=== PATIENT | male | born 1985 | race African-American/Black ===

== ENCOUNTER 2022-11-28 15:03 | Outpatient (REF) | payer OTHER, SELFPAY ==
--- NOTE | ~2022-11-28 | XR_ITS ---
EXAMINATION: XR HIP, RIGHT CLINICAL INFORMATION: Right hip pain COMPARISON: None TECHNIQUE: Two views of the right hip. FINDINGS: Mild narrowing of the right femoral acetabular joint with tiny osteophytosis at the superior aspect of the acetabulum. No acute fracture or dislocation. Mild degenerative changes of the right sacroiliac joint. 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
[2022-11-28 15:24] LABS: MANUAL DIFF FLAG NO
[2022-11-28 15:51] LABS: Basophils Absolute Auto 0.1 X10*3/uL (0.0-0.2); Basophils Percent Auto 0.9 % (0-2); Eosinophils Absolute Auto 0.3 X10*3/uL (0.0-0.4); Eosinophils Percent Auto 3.6 % (0-4); Hematocrit 43.1 % (42.0-52.0); Hemoglobin 14.1 g/dl (14.0-18.0); Imm Gran Abs Auto 0.02 X10*3/uL (0.00-0.03); Imm Gran Pct Auto 0.3 % (0.0-0.4); Lymphocytes Absolute Auto 2.4 X10*3/uL (1.2-4.9); Mean Corpuscular HGB Conc 32.7 g/dl (31.0-36.0); Mean Corpuscular Hemoglobin 28.5 pg (27.0-33.0); Mean Corpuscular Volume 87.1 fL (80.0-98.0); Mean Platelet Volume 9.3 fL (9.4-12.4); Monocytes Absolute Auto 0.6 X10*3/uL (0.1-1.2); Monocytes Percent Auto 7.7 % (2-11); Neutrophils Absolute Auto 4.4 x10*3/uL (2.0-8.3); Neutrophils Percent Auto 56.5 % (45-73); Platelet Count 237 X10*3/uL (160-400); Red Blood Count 4.95 X10*6/uL (4.60-5.80); Red Cell Distribution Width 13.2 % (11.0-16.0); White Blood Count 7.8 X10*3/uL (4.8-10.8)
[2022-11-28 16:20] LABS: Alanine Aminotransferase 24 U/L (0-40); Albumin Level 4.1 g/dL (3.5-5.0); Alkaline Phosphatase 69 U/L (39-117); Anion Gap 13 (12-20); Aspartate Amino Transferase 16 U/L (5-37); Bilirubin Total 0.4 mg/dL (0.0-1.0); Blood Urea Nitrogen 10 mg/dL (9-16); Carbon Dioxide 28 mmol/L (22-29); Chloride 106 mmol/L (96-108); Cholesterol 168 mg/dL; Estimated Glomerular Filt Rate > 60; Glucose Random 98 mg/dL (60-115); HDL Cholesterol 38 mg/dL; LDL Cholesterol Calculated 99 mg/dl; Potassium 4.2 mmol/L (3.3-5.1); Sodium 143 mmol/L (135-145); Total Protein 6.7 g/dL (6.5-8.0); Triglycerides 156 mg/dL
[2022-11-28 16:39] LABS: Erythrocyte Sedimentation Rate 2 MM/HR (0-15)
== END 2022-11-28 15:04 | disposition home or self-care (01) ==
LOC: HO.XRAY 15:03
PROVIDERS: PCP Internal Medicine; Visit Provider Internal Medicine
DX: Z00.00 Encounter for general adult medical examination without abnormal findings (principal); F31.9 Bipolar disorder, unspecified; M25.551 Pain in right hip; F17.200 Nicotine dependence, unspecified, uncomplicated; M16.0 Bilateral primary osteoarthritis of hip
CPT/HCPCS: 36415; 73502; 80053; 80061; 82306; 85025; 85652

== ENCOUNTER 2023-11-26 00:08 | Emergency (ER) | payer OTHER, SELFPAY ==
[2023-11-26 00:41] VITALS: BP 00/00; PULSE 76; RESP 22; TEMP 37.1; O2SAT 96; BMI 21.3
[2023-11-26 02:00] VITALS: BP 103/55; PULSE 74; RESP 16; TEMP 37.7; O2SAT 97
--- NOTE | 2023-11-26 02:00 | ECG_ITS ---
Test Reason : DIZZINESS Blood Pressure : / mmHG Vent. Rate : 064 BPM Atrial Rate : 064 BPM P-R Int : 184 ms QRS Dur : 094 ms QT Int : 370 ms P-R-T Axes : 072 086 076 degrees QTc Int : 381 ms Normal sinus rhythm Normal ECG When compared with ECG of 29-DEC-2004 16:23, No significant change was found Referred By: Yuli Lopez Electronically Signed By:Camron Davidson
[2023-11-26 02:53] LABS: MANUAL DIFF FLAG NO
[2023-11-26 02:55] LABS: Basophils Percent Auto 0.3 % (0-2); Eosinophils Absolute Auto 0.1 X10*3/uL (0.0-0.4); Eosinophils Percent Auto 0.8 % (0-4); Hematocrit 43.6 % (42.0-52.0); Hemoglobin 14.5 g/dl (14.0-18.0); Imm Gran Abs Auto 0.03 X10*3/uL (0.00-0.03); Imm Gran Pct Auto 0.3 % (0.0-0.4); Lymphocytes Absolute Auto 1.9 X10*3/uL (1.2-4.9); Lymphocytes Percent Auto 19.4 % (20-40); Mean Corpuscular HGB Conc 33.3 g/dl (31.0-36.0); Mean Corpuscular Hemoglobin 29.1 pg (27.0-33.0); Mean Corpuscular Volume 87.6 fL (80.0-98.0); Mean Platelet Volume 9.1 fL (9.4-12.4); Monocytes Absolute Auto 1.1 X10*3/uL (0.1-1.2); Monocytes Percent Auto 11.3 % (2-11); Neutrophils Absolute Auto 6.8 x10*3/uL (2.0-8.3); Neutrophils Percent Auto 67.9 % (45-73); Platelet Count 202 X10*3/uL (160-400); Red Blood Count 4.98 X10*6/uL (4.60-5.80); Red Cell Distribution Width 12.9 % (11.0-16.0)
[2023-11-26 02:56] LABS: Appearance Urine Clear; Color Urine Yellow; Glucose Urine UA Negative (Negative); Leukocyte Esterase Urine Negative (Negative); Nitrite Urine Negative (Negative); PH 6.5 (5.0-9.0); UMIC TRIGGER UACC YES; Urine Blood Moderate (2+) (Negative); Urine Ketones Negative (Negative); Urine Protein Negative (Neg-Trace)
[2023-11-26 03:02] LABS: Amphetamine Screen Urine Not Detected (Not Detect); Barbiturates, Urine Not Detected (Not Detect); Benzodiazepines Screen Urine Not Detected (Not Detect); Cannabinoid Screen Urine POSITIVE (Not Detect); Cocaine Screen Urine POSITIVE (Not Detect); Fentanyl, urine Not Detected (Not Detect); Opiate Screen Urine Not Detected (Not Detect); Phencyclidine Screen Urine Not Detected (Not Detect)
[2023-11-26 03:06] LABS: Bacteria Urine None Seen (None Seen); Hyaline Casts Urine 0-2 /LPF (0-2); Squamous Epithelial Cell Urine 0-2 /HPF (0-2); WBC Urine 0-5 /HPF (0-5)
[2023-11-26 03:09] LABS: Alanine Aminotransferase 10 U/L (0-40); Albumin Level 3.9 g/dL (3.5-5.0); Alkaline Phosphatase 74 U/L (39-117); Anion Gap 14 (12-20); Aspartate Amino Transferase 19 U/L (5-37); Bilirubin Total 0.2 mg/dL (0.0-1.0); Blood Urea Nitrogen 11 mg/dL (9-16); Calcium 8.6 mg/dL (8.4-10.2); Carbon Dioxide 29 mmol/L (22-29); Chloride 104 mmol/L (96-108); Creatinine Clr Calc Pharmacy 108.4; Estimated Glomerular Filt Rate > 60; Glucose Random 110 mg/dL (60-115); Potassium 3.6 mmol/L (3.3-5.1); Sodium 143 mmol/L (135-145); Total Protein 7.1 g/dL (6.5-8.0)
--- NOTE | 2023-11-26 06:10 | ED_ITS ---
HPI - Skin/Abscess/Foreign Bdy General Chief complaint: Skin/Abscess/Foreign Body Stated complaint: Dizziness Time Seen by Provider: 11/26/23 03:31 Source: patient and family Mode of arrival: ambulatory History of Present Illness HPI narrative: 38-year-old male who presents with pain located on the left buttock that has been worsening for over week and states that had started off as a bump and then become much larger and more painful. Patient reports subjective fevers and chills as well as dizziness Related Data Previous Rx's Medication Instructions Recorded cephalexin 500 mg capsule 500 mg PO BID 5 days #10 caps 11/26/23 doxycycline monohydrate 100 mg 100 mg PO BID 5 days #10 caps 11/26/23 capsule Allergies Allergy/AdvReac Type Severity Reaction Status Date / Time No Known Allergies Allergy Mild NOT Unverified 06/30/20 15:20 APPLICABLE Review of Systems 2 Review of Systems: Pertinent positives and negatives as stated in HPI PMFSH Past Medical History Source: nursing notes reviewed Social History Social History Smoked in Last 30 Days: Yes Use of substances other than those prescribed or required for medical reasons: No Advance Directives: No Advance Directives Information Provided: Yes Physical Exam 2 Vital Signs: Vital Signs: Last Vital Signs Temp 99.8 F 11/26/23 02:00 Pulse 74 11/26/23 02:00 Resp 16 11/26/23 02:00 BP 103/55 L 11/26/23 02:00 Pulse Ox 97 11/26/23 02:00 O2 Del Method Room Air 11/26/23 02:00 BMI result Body Mass Index 21.3 VITAL SIGNS: Reviewed. GENERAL: Well developed, well nourished, in no acute distress. HEAD: Normocephalic/atraumatic EYES: PERRLA, EOMI LUNGS: Normal breath sounds. No adventitious sounds or accessory muscle use. SpO2<97> CARDIOVASCULAR: Regular rate and rhythm without noted murmurs ABDOMEN: Soft, non-tender, non-distended with bowel sounds. 3.5cm indurated swelling at superior asp ect of left gluteal cleft MUSCULOSKELETAL: No tenderness, deformities, or effusions noted on gross inspection. EXTREMITIES: No cyanosis, clubbing or edema. SKIN: Inspection of the skin reveals no rashes NEUROLOGIC: Alert and oriented x 4. Strength and sensation to light touch were grossly intact x 4. Medical Decision Making Medical Decision Making [facility] Narrative: 38-year-old male with history and clinical presentation, DDX: Abscess Reviewed all investigations and hematologic indices are negative for leukocytosis or left shift and there is no evidence of anemia or thrombocytopenia. Chemistry indices are grossly within normal limits. Urinalysis significant for hematuria and UDS is positive for cocaine and marijuana. Patient became inpatient and decided to leave against medical advice. He understands the risks versus benefits. Differential Diagnosis Differential Diagnoses: The differential diagnosis associated with the presentation includes Please see the discussion above Admission/Observation Consideration of admission/observation: Escalation of care including admission/observation considered Please see the discussion above Lab Data [facility] Lab Attestation statement: I reviewed the patient's lab results. Please see the discussion above 11/26/23 02:45 11/26/23 02:45 Labs: Lab Results 11/26/23 Range/Units 02:45 WBC 10.0 (4.8-10.8) X10*3/uL RBC 4.98 (4.60-5.80) X10*6/uL Hgb 14.5 (14.0-18.0) g/dl Hct 43.6 (42.0-52.0) % MCV 87.6 (80.0-98.0) fL MCH 29.1 (27.0-33.0) pg MCHC 33.3 (31.0-36.0) g/dl RDW 12.9 (11.0-16.0) % Plt Count 202 (160-400) X10*3/uL MPV 9.1 L (9.4-12.4) fL Immature Gran % (Auto) 0.3 (0.0-0.4) % Neut % (Auto) 67.9 (45-73) % Lymph % (Auto) 19.4 L (20-40) % [place] % (Auto) 11.3 H (2-11) % Eos % (Auto) 0.8 (0-4) % Baso % (Auto) 0.3 (0-2) % Lymph # (Auto) 1.9 (1.2-4.9) X10*3/uL [place] # (Auto) 1.1 (0.1-1.2) X10*3/uL Eos # (Auto) 0.1 (0.0-0.4) X10*3/uL Baso # (Auto) 0.0 (0.0-0.2) X10*3/uL Abs Immat Gran (auto) 0.03 (0.00-0.03) X10*3/uL Absolute Neuts (auto) 6.8 (2.0-8.3) x10*3/uL Absolute Nucleated RBC 0.000 (0.0-0.012) X10*3/uL Nucleated RBC % (auto) 0.0 (0.0-0.2) /100WBC Sodium 143 (135-145) mmol/L Potassium 3.6 (3.3-5.1) mmol/L Chloride 104 (96-108) mmol/L Carbon Dioxide 29 (22-29) mmol/L Anion Gap 14 (12-20) BUN 11 (9-16) mg/dL Creatinine 0.87 (0.5-1.4) mg/dL Estim Creat Clear Calc 108.4 Estimated GFR > 60 Random Glucose 110 (60-115) mg/dL Lactic Acid 1.0 (0.5-2.0) mmol/L Calcium 8.6 (8.4-10.2) mg/dL Total Bilirubin 0.2 (0.0-1.0) mg/dL AST 19 (5-37) U/L ALT 10 (0-40) U/L Alkaline Phosphatase 74 (39-117) U/L Total Protein 7.1 (6.5-8.0) g/dL Albumin 3.9 (3.5-5.0) g/dL Urine Color Yellow Urine Appearance Clear Urine pH 6.5 (5.0-9.0) Ur Specific Sawyer 1.020 (1.005-1.025) Urine Protein Negative (Neg-Trace) mg/dL Urine Glucose (UA) Negative (Negative) mg/dL Urine Ketones Negative (Negative) mg/dL Urine Blood Moderate (2+) H (Negative) Urine Nitrite Negative (Negative) Ur Leukocyte Esterase Negative (Negative) Urine RBC 11-20 H (0-2) /HPF Urine WBC 0-5 (0-5) /HPF Ur Squamous Epith Cells 0-2 (0-2) /HPF Urine Bacteria None Seen (None Seen) Hyaline Casts 0-2 (0-2) /LPF Urine Opiates Screen Not Detected (Not Detect) Urine Fentanyl Screen Not Detected (Not Detect) Ur Barbiturates Screen Not Detected (Not Detect) Ur Phencyclidine Scrn Not Detected (Not Detect) Ur Amphetamines Screen Not Detected (Not Detect) U Benzodiazepines Scrn Not Detected (Not Detect) Urine Cocaine Screen POSITIVE H (Not Detect) U Marijuana (THC) Screen POSITIVE H (Not Detect) Discharge Plan Discharge Clinical Impression: Abscess of skin or subcutaneous tissue Patient Disposition: Left Against Medical Advice Instructions: Abscess (ED) Additional Instructions: Do not hesitate to return to the emergency room Prescriptions: New doxycycline monohydrate 100 mg capsule 100 mg PO BID 5 Days Qty: 10 0RF cephalexin 500 mg capsule 500 mg PO BID 5 Days Qty: 10 0RF Stand Alone Forms: Against Medical Advice Interventions: ED Discharge Assessment Last Done: 11/26/23 06:06 Discharge Date/Time: 11/26/23 06:06
== END 2023-11-26 06:06 | disposition left against medical advice (07) ==
PROVIDERS: Emergency Provider Student in an Organized Health Care Education/Training Program
DX: L02.31 Cutaneous abscess of buttock (principal); R42 Dizziness and giddiness; F14.90 Cocaine use, unspecified, uncomplicated; R50.9 Fever, unspecified; F12.90 Cannabis use, unspecified, uncomplicated; Z79.899 Other long term (current) drug therapy
CPT/HCPCS: 36415; 80053; 80307; 81001; 83605; 85025; 87040; 93005; 99284

== ENCOUNTER → 2023-11-26 02:00 | Outpatient (BNV) | payer OTHER, SELFPAY | PROVIDERS: Emergency Provider Student in an Organized Health Care Education/Training Program; Visit Provider Internal Medicine Cardiovascular Disease | DX: R42 Dizziness and giddiness (principal) | CPT/HCPCS: 93010 ==

== ENCOUNTER 2023-11-28 11:15 | Outpatient (REF) | payer OTHER, SELFPAY | END 2023-11-28 11:16 | disposition home or self-care (01) | LOC: HO.LNP 11:15 | PROVIDERS: PCP Internal Medicine; Referring Provider Internal Medicine; Visit Provider Surgery | DX: L05.01 Pilonidal cyst with abscess (principal) | CPT/HCPCS: 10080; 87070; 87205; 99202 ==

== ENCOUNTER 2023-11-28 11:15 | Outpatient (AMB) | payer OTHER, SELFPAY ==
--- NOTE | 2023-11-28 11:17 | A.OFFVIS_ITS ---
Intake Vital Signs 3 11/28/23 11:22 Height 5 ft 10 in Weight 148 lb 2 oz BMI 21.3 BP 117/65 Blood Pressure Location Lt brachial Position Sitting Intake Visit Reasons: abscess buttock, possible I&D Intake Note: Patient is seen in office for evaluation and treatment of an abscess of the buttock. Pt c/o: onset one week, taking antibiotics since Saturday, admits redness, hot to the touch, painful, swelling, denies discharge, unable to sit or walk due to pain Sports Doctor Required: No Accompanied by: Family/Other Allergies No Known Allergies Allergy (Mild, Unverified 11/28/23 11:25) NOT APPLICABLE Medication List - Last Reconciled 11/28/23 by Marlon Pinon MD cephalexin 500 mg PO BID 5 days doxycycline monohydrate 100 mg PO BID 5 days HPI HPI Comments 2 History of Present Illness0 Details 38-year-old male patient presenting with complaints of pain between the buttocks which is developed over the past week. His become quite tender and he subsequently presented to the emergency department for evaluation. Unfortunately because of a long wait he was unable to get care and ended up leaving before an incision and drainage could be performed. He was placed on cephalexin and doxycycline but continues to have pain and swelling. He denies fever or chills. He denies any previous infection in this location. He does know a possible insect bite in this location prior to the onset of the infection [facility] Social History Alcohol intake: never Patient Tobacco Use Status: Never used Tobacco Review of Systems Const All systems reviewed & are unremarkable except as noted in HPI and below Denies chills, Denies fever(s), Denies headache(s), Denies poor appetite and Denies weakness ENT Denies headache(s) Card Denies chest pain, Denies irregular heart rhythm, Denies palpitations and Denies dyspnea Resp Denies cough, Denies excessive phlegm production and Denies dyspnea GI Denies abdominal pain, Denies bloating, Denies change in bowel habits, Denies constipation, Denies heartburn, Denies diarrhea, Denies nausea and Denies vomiting Denies difficulty urinating and Denies urinary frequency Musc Denies back pain, Denies muscle weakness and Denies numbness Skin/Breast Reports as per HPI, Denies changing lesions and Denies unusual bruising Neuro Denies headache(s), Denies numbness, Denies paresthesias and Denies weakness Psych Denies anxiety and Denies depression Endo Denies palpitations Rocky/Lymph Denies lymphadenopathy Physical Exam Vital Signs: Last Vital Signs BP 117/65 11/28/23 11:22 BMI result Body Mass Index 21.3 Const General: cooperative and no acute distress Nutritional Appearance: well nourished Orientation/consciousness: patient oriented x3 Limitations: no limitations HEENT Head: Yes normocephalic and Yes atraumatic Ears: hearing grossly normal bilaterally Resp Effort & Inspection: normal respiratory effort, no audible wheezes, no cough and no respiratory distress Cardio Jugular venous distension: no JVD GI Inspection: Yes normal to inspection Back/Spine/Pelvis Back/spine/pelvis image: 2 1. large area of fluctuance, extremely tender to palpation with no evidence of drainage. Findings suggestive of a pilonidal cyst abscess. Skin Other: Warm, dry, no rash Neuro General: patient oriented x3 Extrem General: Yes no clubbing, cyanosis or edema Office Procedures I&D Drain Details: Preoperative diagnosis: Pilonidal cyst abscess Postoperative diagnosis: same Procedure: incision and drainage pilonidal cyst abscess Surgeon: Marlon Pinon MD Clean Energy Policy Analyst: none Anesthesia: lidocaine 1% with epinephrine Indications for procedure: large pilonidal cyst abscess Operative findings: large pilonidal cyst abscess Specimen: wound culture Estimated blood loss: less than 2 mL Complications: none Procedure details: patient was placed in a prone position. The site of surgery was confirmed by the patient in the intergluteal cleft. After assuring informed consent the skin was prepped with Betadine and draped in a sterile fashion. Local anesthesia was then infiltrated over the cyst. Incision was then made with an 11 blade into the abscess. A large abscess was then drained. Wounds were then irrigated with saline solution. The abscess cavity was then packed with quarter-inch Nu Gauze. Wounds were then covered with 4 x 4 gauze and ABD pad. The patient tolerated the procedure well. He was discharged to home in stable condition. [id number] of Pilonidal Cyst, simple All charges added?: Procedure code (CPT) selection complete Assessment & Plan Assessment & Plan (1) Pilonidal cyst with abscess: Code(s): L05.01 - Pilonidal cyst with abscess Plan 38-year-old male patient presenting with a pilonidal cyst abscess. This was incised and drained today of a large purulence collection. Wound cultures were obtained. The patient was instructed on local wound care and will return in 1 week for wound examination. He expressed understanding and agrees with the plan. Should continue the antibiotics as previously prescribed. Coding Level of Care Code New Pt Level 4 (01479) Diagnoses Pilonidal cyst with abscess L05.01 CPT Codes I&D Drain - Drain 3: [id number] of Pilonidal Cyst, simple ([id number])
[2023-11-28 11:22] VITALS: BP 117/65; BMI 21.3
== END 2023-11-28 11:43 | disposition home or self-care (01) ==
PROVIDERS: PCP Internal Medicine; Referring Provider Internal Medicine; Visit Provider Surgery
DX: L05.01 Pilonidal cyst with abscess (principal)
CPT/HCPCS: 10080; 99204

== ENCOUNTER 2023-12-06 10:25 | Outpatient (AMB) | payer OTHER, SELFPAY ==
--- NOTE | 2023-12-06 10:32 | MHC.OFFVIS ---
Intake Vital Signs 12/06/23 10:37 Height 5 ft 10 in Weight 152 lb BMI 21.8 BP 113/57 L Blood Pressure Location Lt brachial Position Sitting Pulse 76 Intake Visit Reasons: post I&D pilonidal cyst Intake Note: Patient is seen in office for one week follow up visit, post I&D of pilonidal cyst. Pt c/o: continued pain, some minimal discharge, wick still in place Transportation Worker Required: No Accompanied by: Family/Other Allergies No Known Allergies Allergy (Mild, Unverified 11/28/23 11:25) NOT APPLICABLE HPI HPI Comments History of Present Illness Details Patient returns 1 week following incision and drainage of a pilonidal cyst abscess. He feels much improved with only occasional discomfort. The wick remains in place and he continues to have some mild discharge daily. He denies any fever or chills. [facility] Social History Alcohol intake: never Patient Tobacco Use Status: Never used Tobacco Physical Exam Vital Signs: Last Vital Signs Pulse 76 12/06/23 10:37 BP 113/57 L 12/06/23 10:37 BMI result Body Mass Index 21.8 Const General: no acute distress Nutritional Appearance: well nourished Orientation/consciousness: patient oriented x3 Limitations: no limitations Resp Effort & Inspection: normal respiratory effort Back/Spine/Pelvis Other: Incision and drainage site is clean, with an intact wick. The wick was removed easily small amount of purulence discharge noted. Wounds were covered with a dry sterile dressing. Patient tolerated drain removal well. Neuro General: patient oriented x3 Assessment & Plan Assessment & Plan (1) Pilonidal cyst with abscess: Code(s): L05.01 - Pilonidal cyst with abscess Plan Patient returns 1 week following incision and drainage of pilonidal cyst abscess. The abscess has resolved and the wick removed. He should continue to keep the wound clean and apply dry dressing. He should follow up as needed. Coding Level of Care Code Global (62618) Diagnoses Pilonidal cyst with abscess L05.01
[2023-12-06 10:37] VITALS: BP 113/57; PULSE 76; BMI 21.8
== END 2023-12-06 10:46 | disposition home or self-care (01) ==
PROVIDERS: PCP Internal Medicine; Visit Provider Surgery
DX: L05.01 Pilonidal cyst with abscess (principal)
CPT/HCPCS: 99024

== ENCOUNTER → 2023-12-06 10:25 | Outpatient (BNVA) | payer OTHER, SELFPAY | PROVIDERS: PCP Internal Medicine; Visit Provider Surgery | DX: Z48.817 Encounter for surgical aftercare following surgery on the skin and subcutaneous tissue (principal); Z98.890 Other specified postprocedural states | CPT/HCPCS: 99212 ==

== ENCOUNTER 2024-12-10 12:44 | Outpatient (REF) | payer OTHER, SELFPAY ==
[2024-12-10 13:12] LABS: MANUAL DIFF FLAG NO
[2024-12-10 13:26] LABS: Basophils Absolute Auto 0.1 X10*3/uL (0.0-0.2); Basophils Percent Auto 0.9 % (0-2); Eosinophils Absolute Auto 0.3 X10*3/uL (0.0-0.4); Eosinophils Percent Auto 3.5 % (0-4); Hematocrit 48.5 % (42.0-52.0); Hemoglobin 15.9 g/dl (14.0-18.0); Imm Gran Abs Auto 0.06 X10*3/uL (0.00-0.03); Imm Gran Pct Auto 0.7 % (0.0-0.4); Lymphocytes Absolute Auto 2.8 X10*3/uL (1.2-4.9); Lymphocytes Percent Auto 32.6 % (20-40); Mean Corpuscular HGB Conc 32.8 g/dl (31.0-36.0); Mean Corpuscular Hemoglobin 28.5 pg (27.0-33.0); Mean Corpuscular Volume 87.1 fL (80.0-98.0); Mean Platelet Volume 8.4 fL (9.4-12.4); Monocytes Absolute Auto 0.8 X10*3/uL (0.1-1.2); Monocytes Percent Auto 9.7 % (2-11); Neutrophils Absolute Auto 4.5 x10*3/uL (2.0-8.3); Neutrophils Percent Auto 52.6 % (45-73); Platelet Count 283 X10*3/uL (160-400); Red Blood Count 5.57 X10*6/uL (4.60-5.80); Red Cell Distribution Width 12.3 % (11.0-16.0); White Blood Count 8.6 X10*3/uL (4.8-10.8)
[2024-12-10 13:56] LABS: Alanine Aminotransferase 19 U/L (0-40); Albumin Level 4.2 g/dL (3.5-5.0); Alkaline Phosphatase 84 U/L (39-117); Anion Gap 10 (12-20); Aspartate Amino Transferase 28 U/L (5-37); Bilirubin Total 0.4 mg/dL (0.0-1.0); Blood Urea Nitrogen 12 mg/dL (9-16); Calcium 9.1 mg/dL (8.4-10.2); Carbon Dioxide 32 mmol/L (22-29); Chloride 104 mmol/L (96-108); Cholesterol 170 mg/dL (<200); Estimated Glomerular Filt Rate > 60; Glucose Random 90 mg/dL (60-115); HDL Cholesterol 37 mg/dL (>40); LDL Cholesterol Calculated 103 mg/dL (<100); Potassium 4.5 mmol/L (3.3-5.1); Sodium 141 mmol/L (135-145); Triglycerides 153 mg/dL (<150)
--- OUTSIDE RECORDS SUMMARY | 2024-12-10 15:09 | XMS_ITS | Clinical Summary ---
Author Organization [facility]y Address [address] [place] [address] Care Team Providers Care Laboratory Administrative Director Name Role Phone Nusrat Vargas MD Primary Care Provider [phone] Social History Tobacco Use Types Packs/Day Years Used Date Smoking Tobacco: Every Day Smokeless Tobacco: Never Sex and Gender Information Value Date Recorded Sex Assigned at Not on file Legal Sex Male 3:59 AM EST Gender Identity Not on file Sexual Orientation Not on file Obstetrics History Plan of Treatment Health Maintenance Due Date Last Done Comments DTaP,Tdap,and Td Vaccines (1 - Tdap) 2003 Hepatitis B Vaccines (1 of 3 - 19+ 3-dose series) 2003 Pneumococcal Vaccine: Pediat rics (0 to 5 Years) and At-Risk Patients (6 to 64 Years) (1 of 2 - PCV) 2003 Cholesterol Screening (Lipid Panel) 09/16/2022 Depression Screening 09/16/2022 HIV Screening 09/16/2022 Hepatitis C Screening 09/16/2022 Social Influencers of Health Screening 09/16/2022 COVID-19 Vaccine ( - 2023-2 5 season) 2024 Influenza Vaccine (#1) 2024 HIB Vaccines Aged Out No longer eligi ble based on patient's age to complete this topic HPV Vaccines Aged Out No longer eligi ble based on patient's age to complete this topic Hepatitis A Vaccines Aged Out No long er eligible based on patient's age to complete this topic IPV Vaccines Aged Out No longer eligi ble based on patient's age to complete this topic MMR Vaccines Aged Out No longer eligi ble based on patient's age to complete this topic Meningococcal ACWY Vaccine Aged Out N o longer eligible based on patient's age to complete this topic Meningococcal B Vacine Aged Out No lo nger eligible based on patient's age to complete this topic RSV Immunization Patients Un marcus 20 months Aged Out No longer eligible b ased on patient's age to complete this topic Varicella Vaccines Aged Out No longer eligible based on patient's age to complete this topic Care Teams Laboratory Administrative Director Relationship Specialty Start Date End Date Nusrat Vargas MD [facility] [address] [place] PCP - General Internal Medicine 10/02/18
== END 2024-12-10 12:45 | disposition home or self-care (01) ==
LOC: HO.LAB 12:44
PROVIDERS: PCP Internal Medicine; Visit Provider Internal Medicine
DX: Z00.00 Encounter for general adult medical examination without abnormal findings (principal); J44.9 Chronic obstructive pulmonary disease, unspecified; R10.12 Left upper quadrant pain; Z72.0 Tobacco use
CPT/HCPCS: 36415; 80053; 80061; 85025

== ENCOUNTER 2025-01-12 11:46 | Outpatient (AMB) | payer OTHER, SELFPAY ==
--- NOTE | 2025-01-12 11:46 | MHC.OFFVIS ---
Vital Signs 01/12/25 11:53 Height 5 ft 10 in Weight 149 lb 14.629 oz BMI 21.5 Intake Visit Reasons: Pilonidal cyst flare requesting abx rf Intake Note: Patient is seen in office for recurrent pilonidal abscess. 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 He was previously treated with antibiotics with resolution of symptoms. He was well until approximately 1 week ago when he began to notice a palpable lump in the left buttock. This increased in severity over the next several days. He had some leftover antibiotics and started taking those as soon as the symptoms started. He now reports the pain has decreased but he still is able to feel the palpable lump. He denies any overlying skin changes or discharge from the skin. He also denies fever or chills. His last dose of antibiotics was 4 days ago. [facility] Social History Alcohol intake: never Patient Tobacco Use Status: Never used Tobacco Review of Systems Const All systems reviewed & are unremarkable except as noted in HPI and below Physical Exam Vital Signs: BMI result Body Mass Index 21.5 Const General: no acute distress Nutritional Appearance: well nourished Orientation/consciousness: patient oriented x3 Limitations: no limitations Resp Effort & Inspection: normal respiratory effort Back/Spine/Pelvis Other: Overall skin is clean with no areas of redness or discharge. A palpable lump is noted by the patient in the left buttock within the intergluteal cleft. A slightly firm area is identified in this location with no evidence of fluctuance. This is slightly tender to palpation. No abscess collection could be identified. Neuro General: patient oriented x3 Assessment & Plan Assessment & Plan (1) Pilonidal cyst with abscess: Code(s): L05.01 - Pilonidal cyst with abscess Category: Medical Plan 39-year-old male patient with a prior history of pilonidal cyst abscess requiring incision and drainage now with a new area of firmness suggestive of a recurrent abscess. On examination however no abscess cavity could be identified. The overlying skin is normal without redness or inflammation. I recommended starting antibiotics with follow-up examination if there is no improvement with the current course of antibiotics. Expressed understanding and agrees with the plan. Medications: Changed From cephalexin 500 mg PO BID 10 caps 0RF 5 days L05.01 - Pilonidal cyst with abscess To cephalexin 500 mg PO BID 20 caps 2RF 10 days L05.01 - Pilonidal cyst with abscess From doxycycline monohydrate 100 mg PO BID 10 caps 0RF 5 days L05.01 - Pilonidal cyst with abscess To doxycycline monohydrate 100 mg PO BID 20 caps 2RF 10 days L05.01 - Pilonidal cyst with abscess Coding Level of Care Code Est Pt Level 3 (28453) Diagnoses Pilonidal cyst with abscess L05.01
[2025-01-12 11:53] VITALS: BMI 21.5
--- OUTSIDE RECORDS SUMMARY | 2025-01-12 14:10 | XMS_ITS | Clinical Summary ---
Author Organization [facility] Address [address] [place] [address] Care Team Providers Care Managing Supervisor Name Role Phone Nusrat Vargas MD Primary Care Provider [phone] Social History Tobacco Use Types Packs/Day Years [...] age to complete this topic Care Teams Managing Supervisor Relationship Specialty Start Date End Date Nusrat Vargas MD [facility] [address] [place] PCP - General Internal Medicine 10/02/18
== END 2025-01-12 12:02 | disposition home or self-care (01) ==
LOC: HO.HGS 11:47
PROVIDERS: PCP Internal Medicine; Visit Provider Surgery
DX: L05.01 Pilonidal cyst with abscess (principal)
CPT/HCPCS: 99213

== ENCOUNTER → 2025-01-12 11:46 | Outpatient (BNVA) | payer OTHER, SELFPAY | PROVIDERS: PCP Internal Medicine; Visit Provider Surgery | DX: L05.01 Pilonidal cyst with abscess (principal); Z79.2 Long term (current) use of antibiotics | CPT/HCPCS: 99212 ==